=== PATIENT | female | born 1985 | race Caucasian/White ===

== ENCOUNTER 2021-06-25 21:24 | Emergency (ER) | payer OTHER ==
[~2021-06-25] VITALS: Ht 152.4 cm; Wt 57.0 kg
[2021-06-25 21:37] VITALS: BP 125/65
== END 2021-06-25 22:57 | disposition left against medical advice (07) ==
LOC: ER 21:24
DX: Z53.21 Procedure and treatment not carried out due to patient leaving prior to being seen by health care provider (principal)